=== PATIENT | male | born 1975 | race Caucasian/White ===

== ENCOUNTER 2018-05-08 17:11 | Emergency (ER) | payer BC, MEDICAID, OTHER ==
--- NOTE | 2018-05-08 17:24 | EDM.PDOC ---
ED HPI GENERAL MEDICAL PROBLEM - General Stated Complaint: SOB,CHEST PAIN,SHOULDER PAIN Time Seen by Provider: 05/08/18 17:11 Source of Information: Reports: Patient, EMS History Limitations: Reports: No Limitations - History of Present Illness INITIAL COMMENTS - FREE TEXT/NARRATIVE: 42 y.o.w.m cam to the ed with SSCP, not radiating, extremely anxious. Pt underwent a a divorce recently and is currently under a lot of stress. Pt was for same in the ed in the past. No N/V/D, no excessive sweating, no diaphorsis or any other acute medical issues. BP 116/80 Pulkse 94 RR 18 Pulse ox 100% on RA. Temp 36.8 Onset Date: 05/05/18 Onset Time: 16:00 Duration: Intermittent Location: Reports: Chest Quality: Reports: Ache, Burning, Same as Previous Episode Severity: Moderate Improves with: Reports: None Worsens with: Reports: None Context: Reports: Other (pt is under stress because he went an devorce through recently) Associated Symptoms: Reports: Chest Pain left chest radiating to left shoulder Pain Score (Numeric/FACES): 7 - Related Data Allergies Allergy/AdvReac Type Severity Reaction Status Date / Time No Known Allergies Allergy Verified 05/08/18 18:24 Home Meds: Home Meds NK [No Known Home Meds] 05/08/18 [History] ED ROS GENERAL - Review of Systems Review Of Systems: See Below Constitutional: Reports: No Symptoms HEENT: Reports: No Symptoms Respiratory: Reports: No Symptoms Cardiovascular: Reports: Chest Pain Endocrine: Reports: No Symptoms GI/Abdominal: Reports: No Symptoms : Reports: No Symptoms Musculoskeletal: Reports: No Symptoms Skin: Reports: No Symptoms Neurological: Reports: No Symptoms Psychiatric: Reports: No Symptoms Hematologic/Lymphatic: Reports: No Symptoms Immunologic: Reports: No Symptoms ED EXAM, GENERAL - Physical Exam Exam: See Below Exam Limited By: Other (anxious) General Appearance: Alert, WD/WN, Anxious Eye Exam: Bilateral Eye: Normal Inspection Ears: Normal External Exam Ear Exam: Bilateral Ear: Auricle Normal Nose: Normal Inspection Throat/Mouth: Normal Inspection Head: Atraumatic, Normocephalic Neck: Normal Inspection, Supple, Non-Tender Respiratory/Chest: No Respiratory Distress, Lungs Clear, Normal Breath Sounds, Chest Non-Tender Cardiovascular: Normal Peripheral Pulses, Regular Rate, Rhythm, No Edema, No Gallop Peripheral Pulses: 1+: Brachial (R) GI/Abdominal: Normal Bowel Sounds, Soft, Non-Tender, No Organomegaly, No Abnormal Bruit (Male) Exam: No Hernia Rectal (Males) Exam: Deferred Back Exam: Normal Inspection, Full Range of Motion Extremities: Normal Inspection, Normal Range of Motion, Non-Tender, No Pedal Edema Neurological: Alert, Oriented, CN II-XII Intact, Normal Cognition, Normal Gait Psychiatric: Normal Affect, Anxious Skin Exam: Warm, Dry, Intact, Normal Color, No Rash Lymphatic: No Adenopathy EKG INTERPRETATION EKG Date: 05/08/18 Time: 17:20 Rhythm: NSR Rate (Beats/Min): 70 [place]: Normal P-Wave: Present QRS: Normal ST-T: Normal QT: Normal Comparison: NA - No Prior EKG (poor quality ECG) Course - Vital Signs Text/Narrative:: 42 y.o.w.m cam to the ed with SSCP, not radiating, extremely anxious. Pt underwent a a divorce recently and is currently under a lot of stress. Pt was for same in the ed in the past. No N/V/D, no excessive sweating, no diaphorsis or any other acute medical issues. BP 116/80 Pulkse 94 RR 18 Pulse ox 100% on RA. Temp 36.8 PE; WNWD W M, anxious, CP Imaging: CXR: NAD Labs: WBC, H/H weere no Troponin was 0.017 Na 134 K 3.4 BUN/CR ratio 4.4 BUN 4 Cr 0.9 Impression: Atypical chest pain Tx; ASA Reexam: C/P subsided when pt was assured he has no MT Plan: D/C with instructions Last Recorded V/S: Last Vital Signs Temp 37.1 C 05/08/18 20:05 Pulse 97 05/08/18 20:05 Resp 12 05/08/18 20:05 BP 124/87 05/08/18 20:05 Pulse Ox 100 05/08/18 20:05 - Orders/Labs/Meds Labs: Laboratory Tests 05/08/18 05/08/18 05/08/18 Range/Units 17:43 17:43 17:43 WBC 6.7 (4.5-12.0) X10-3/uL RBC 4.22 L (4.30-5.75) x10(6)uL Hgb 14.4 (11.5-15.5) g/dL Hct 43.3 (30.0-51.3) % MCV 102.7 H (80-96) fL MCH 34.0 H (27.7-33.6) pg MCHC 33.1 (32.2-35.4) g/dL RDW 11.9 (11.5-15.5) % Plt Count 115 L (125-369) X10(3)uL MPV 8.1 (7.4-10.4) fL Neut % (Auto) 67.5 (46-82) % Lymph % (Auto) 22.5 (13-37) % [place] % (Auto) 8.6 (4-12) % Eos % (Auto) 1 (1.0-5.0) % Baso % (Auto) 1 (0-2) % Neut # (Auto) 4.5 (1.6-8.3) # Lymph # (Auto) 1.5 (0.6-5.0) # [place]aufman # (Auto) 0.6 (0.0-1.3) # Eos # (Auto) 0.0 (0.0-0.8) # Baso # (Auto) 0.1 (0.0-0.2) # Sodium 135 (135-145) mmol/L Potassium 3.4 L (3.5-5.3) mmol/L Chloride 98 L (100-110) mmol/L Carbon Dioxide 26 (21-32) mmol/L BUN 4 L (7-18) mg/dL Creatinine 0.9 (0.70-1.30) mg/dL Est Cr Clr Drug Dosing TNP Estimated GFR (MDRD) > 60 (>60) BUN/Creatinine Ratio 4.4 L (9-20) Glucose 90 (80-116) mg/dL Calcium 8.7 (8.6-10.2) mg/dL Troponin I < 0.017 L (<0.017-0.056) ng/mL Meds: Medications Discontinued Medications Generic Name Dose Route Start Last Admin Trade Name Freq PRN Reason Stop Dose Admin Aspirin 324 mg 05/08/18 17:25 07/14/18 17:25 Aspirin PO 05/08/18 17:26 324 mg ONETIME ONE Administration Departure - Departure Time of Disposition: 20:10 Disposition: Home, Self-Care 01 Condition: Good (atypic) Clinical Impression: Atypical chest pain Instructions: Nonspecific Chest Pain, [id number] Referrals: Mark Rodriguez MD [Primary Care Provider] - Forms: ED Department Discharge Additional Instructions: Please f/u with your PMD. Come back if your symptoms get worse acutely
[2018-05-08] MEDS ORDERED: Aspirin 81 MG Tab.Chew PO ONE (17:25)
--- NOTE | 2018-05-10 11:42 | CR ---
INDICATION: Chest pain. CHEST: AP upright view of the chest revealed the heart to be normal in size and shape. Mediastinum was unremarkable. Overlying EKG leads are noted. An active infiltrate or effusion was not seen. IMPRESSION: No acute process. I MTDD
== END 2018-05-08 20:05 | disposition home or self-care (01) ==
LOC: FB.ED 17:11
DX: R07.89 Other chest pain (principal)
CPT/HCPCS: 36415; 71045; 80048; 84484; 85025; 93005; 99285; A9270

== ENCOUNTER 2018-06-20 14:52 | Emergency (ER) | payer MEDICAID ==
--- NOTE | 2018-06-20 15:34 | EDM.PDOC ---
ED HPI GENERAL MEDICAL PROBLEM - General Chief Complaint: Gastrointestinal Problem Stated Complaint: RECTAL BLEEDING Time Seen by Provider: 06/20/18 14:57 Source of Information: Reports: Patient History Limitations: Reports: No Limitations - History of Present Illness INITIAL COMMENTS - FREE TEXT/NARRATIVE: 42 years old w m with a history of chronic ETOH abuse, came to the ed because of one episode of bright red blood in his rectum. Pt had another BM a few hours later. He did not see blood in his stool then. Pt drinks 6-8 bottles of beer daily. for his "anxiety". No N/V/D or dizziness. No other acute medical issue. BP 106/84 pulse 84 RR 20 temp 36.8 Pulse 98% Onset Date: 06/20/18 Onset Time: 08:00 Duration: Hour(s):, Improving Location: Reports: Abdomen Quality: Reports: Other Severity: Moderate Improves with: Reports: None Worsens with: Reports: None Context: Reports: Other (had a BM) Associated Symptoms: Reports: No Other Symptoms Rectal pain Pain Score (Numeric/FACES): 2 - Related Data Allergies Allergy/AdvReac Type Severity Reaction Status Date / Time No Known Allergies Allergy Verified 06/20/18 15:03 Home Meds: Home Meds Folic Acid 1 mg PO DAILY #30 tablet 06/20/18 [Rx] Multivitamin [Daily Multiple Vitamin] 1 each PO DAILY #30 tablet 06/20/18 [Rx] Thiamine [Vitamin B-1] 100 mg PO BEDTIME #30 tab 06/20/18 [Rx] hydrOXYzine pamoate [Hydroxyzine Pamoate] 25 mg QID PRN 06/20/18 [History] Past Medical History - Past Health History Medical/Surgical History: Denies Medical/Surgical History Other Musculoskeletal History: ACL tear Neurological History: Reports: Concussion Psychiatric History: Reports: Anxiety, Panic Attack - Past Surgical History HEENT Surgical History: Reports: Oral Surgery Musculoskeletal Surgical History: Reports: Arthroscopic Procedure Other Musculoskeletal Surgeries/Procedures:: R ACL repair Social & Family History - Family History Family Medical History: Unobtainable - Tobacco Use Years of Tobacco use: 17 Packs/Tins Daily: 0.2 - Caffeine Use Caffeine Use: Reports: Soda - Alcohol Use Days Per Week of Alcohol Use: 7 Number of Drinks Per Day: 5 Total Drinks Per Week: 35 - Recreational Drug Use Recreational Drug Use: No ED ROS GENERAL - Review of Systems Review Of Systems: See Below Constitutional: Reports: No Symptoms HEENT: Reports: No Symptoms Respiratory: Reports: No Symptoms Cardiovascular: Reports: No Symptoms Endocrine: Reports: No Symptoms GI/Abdominal: Reports: Other (blood ins stool one time) : Reports: No Symptoms Musculoskeletal: Reports: No Symptoms Skin: Reports: No Symptoms Neurological: Reports: No Symptoms Psychiatric: Reports: No Symptoms Hematologic/Lymphatic: Reports: No Symptoms Immunologic: Reports: No Symptoms ED EXAM, GI/ABD - Physical Exam Exam: See Below Exam Limited By: No Limitations General Appearance: Alert, WD/WN, Thin Eyes: Bilateral: Normal Appearance Ears: Normal External Exam Nose: Normal Inspection Throat/Mouth: Normal Inspection, Normal Lips, Normal Gums, Normal Voice, No Airway Compromise Head: Atraumatic, Normocephalic Neck: Normal Inspection, Supple, Non-Tender, Full Range of Motion Respiratory/Chest: No Respiratory Distress, Lungs Clear, Normal Breath Sounds, No Accessory Muscle Use, Chest Non-Tender Cardiovascular: Normal Peripheral Pulses, Regular Rate, Rhythm, No Edema, No Gallop, No JVD, No Murmur, No Rub GI/Abdominal Exam: Normal Bowel Sounds, Soft, Non-Tender, No Organomegaly, No Distention, No Abnormal Bruit, No Mass, Pelvis Stable (Male) Exam: Deferred Rectal (Males) Exam: Deferred Back Exam: Normal Inspection, Full Range of Motion Extremities: Normal Inspection, Normal Range of Motion, Non-Tender, No Pedal Edema, Normal Capillary Refill Neurological: Alert, Oriented, CN II-XII Intact, Normal Cognition, Normal Gait, No Motor/Sensory Deficits Psychiatric: Normal Affect, Normal Mood Skin Exam: Warm, Dry, Intact, Normal Color, No Rash Lymphatic: No Adenopathy Course - Vital Signs Text/Narrative:: 42 years old w m with a history of chronic ETOH abuse, came to the ed because of one episode of bright red blood in his rectum. Pt had another BM a few hours later. He did not see blood in his stool then. Pt drinks 6-8 bottles of beer daily. for his "anxiety". No N/V/D or dizziness. No other acute medical issue. BP 106/84 pulse 84 RR 20 temp 36.8 Pulse 98% PE: Thin 42 y.o.w.m one one episode of bright red blood in his stool Labs; Na 133 K 3.9 GFR > 60 Albumin 2.7 ALT/AST 60/64 BUN 2 Cr. 0.6 Glc 92 CPK 38 Alk Phos 138 Impression: Low BUN, Hematochezia. MCV elevated, elevated liver enzymes, Low albumin Hyponatremia, chronci ETOH abuse Tx: none in the ED, prescription for MVT, Foloc acid and thiamin Reexam: Imroved Plan: D/C with instruction Last Recorded V/S: Last Vital Signs Temp 36.8 C 06/20/18 14:57 Pulse 87 06/20/18 16:52 Resp 17 06/20/18 16:52 BP 112/84 06/20/18 16:52 Pulse Ox 100 06/20/18 16:52 - Orders/Labs/Meds Labs: Laboratory Tests 06/20/18 06/20/18 06/20/18 Range/Units 15:45 15:45 15:45 WBC 5.6 (4.5-12.0) X10-3/uL RBC 4.35 (4.30-5.75) x10(6)uL Hgb 14.9 (11.5-15.5) g/dL Hct 44.0 (30.0-51.3) % MCV 101.1 H (80-96) fL MCH 34.3 H (27.7-33.6) pg MCHC 33.9 (32.2-35.4) g/dL RDW 11.6 (11.5-15.5) % Plt Count 152 (125-369) X10(3)uL MPV 8.2 (7.4-10.4) fL Neut % (Auto) 59.1 (46-82) % Lymph % (Auto) 28.3 (13-37) % [place] % (Auto) 7.8 (4-12) % Eos % (Auto) 2 (1.0-5.0) % Baso % (Auto) 3 H (0-2) % Neut # (Auto) 3.3 (1.6-8.3) # Lymph # (Auto) 1.6 (0.6-5.0) # [place] # (Auto) 0.4 (0.0-1.3) # Eos # (Auto) 0.1 (0.0-0.8) # Baso # (Auto) 0.2 (0.0-0.2) # PT 10.7 (8.7-11.1) INR 1.10 (0.89-1.13) Sodium 133 L (135-145) mmol/L Potassium 3.9 (3.5-5.3) mmol/L Chloride 100 (100-110) mmol/L Carbon Dioxide 26 (21-32) mmol/L BUN 2 L (7-18) mg/dL Creatinine 0.6 L (0.70-1.30) mg/dL Est Cr Clr Drug Dosing 173.25 mL/min Estimated GFR (MDRD) > 60 (>60) BUN/Creatinine Ratio 3.3 L (9-20) Glucose 92 (80-116) mg/dL Calcium 8.7 (8.6-10.2) mg/dL Total Bilirubin (0.1-1.3) mg/dL Direct Bilirubin (0.10-0.20) mg/dL AST (5-25) IU/L ALT (12-36) U/L Alkaline Phosphatase (56-112) IU/L Creatine Kinase (60-160) IU/L Total Protein (6.0-8.0) g/dL Albumin (3.5-5.2) g/dL Amylase (25-115) U/L 06/20/18 Range/Units 15:45 WBC (4.5-12.0) X10-3/uL RBC (4.30-5.75) x10(6)uL Hgb (11.5-15.5) g/dL Hct (30.0-51.3) % MCV (80-96) fL MCH (27.7-33.6) pg MCHC (32.2-35.4) g/dL RDW (11.5-15.5) % Plt Count (125-369) X10(3)uL MPV (7.4-10.4) fL Neut % (Auto) (46-82) % Lymph % (Auto) (13-37) % [place] % (Auto) (4-12) % Eos % (Auto) (1.0-5.0) % Baso % (Auto) (0-2) % Neut # (Auto) (1.6-8.3) # Lymph # (Auto) (0.6-5.0) # Bath # (Auto) (0.0-1.3) # Eos # (Auto) (0.0-0.8) # Baso # (Auto) (0.0-0.2) # PT (8.7-11.1) INR (0.89-1.13) Sodium (135-145) mmol/L Potassium (3.5-5.3) mmol/L Chloride (100-110) mmol/L Carbon Dioxide (21-32) mmol/L BUN (7-18) mg/dL Creatinine (0.70-1.30) mg/dL Est Cr Clr Drug Dosing mL/min Estimated GFR (MDRD) (>60) BUN/Creatinine Ratio (9-20) Glucose (80-116) mg/dL Calcium (8.6-10.2) mg/dL Total Bilirubin 0.6 (0.1-1.3) mg/dL Direct Bilirubin 0.22 H (0.10-0.20) mg/dL AST 64 H (5-25) IU/L ALT 60 H (12-36) U/L Alkaline Phosphatase 123 H (56-112) IU/L Creatine Kinase 38 L (60-160) IU/L Total Protein 7.4 (6.0-8.0) g/dL Albumin 2.7 L (3.5-5.2) g/dL Amylase 31 (25-115) U/L Departure - Departure Time of Disposition: 16:35 Disposition: Home, Self-Care 01 Condition: Good Clinical Impression: Hematochezia, Low blood urea nitrogen (BUN), Elevated MCV - Discharge Information *PRESCRIPTION DRUG MONITORING PROGRAM REVIEWED*: Yes *COPY OF PRESCRIPTION DRUG MONITORING REPORT IN PATIENT TOM: Yes Prescriptions: Folic Acid 1 mg PO DAILY #30 tablet Multivitamin [Daily Multiple Vitamin] 1 each PO DAILY #30 tablet Thiamine [Vitamin B-1] 100 mg PO BEDTIME #30 tab Referrals: Mark Rodriguez MD [Primary Care Provider] - Andrés Russell MD [Physician] - Forms: ED Department Discharge Additional Instructions: Please avoid ETOH, increase protein intake, no ETOH please. please f/u with Dr. Russell, come back if your symptoms get worse acutely
== END 2018-06-20 16:52 | disposition home or self-care (01) ==
LOC: FB.ED 14:52
DX: K92.1 Melena (principal); E87.1 Hypo-osmolality and hyponatremia; F10.10 Alcohol abuse, uncomplicated; R71.8 Other abnormality of red blood cells; R79.89 Other specified abnormal findings of blood chemistry; R74.8 Abnormal levels of other serum enzymes; R77.0 Abnormality of albumin; Z79.899 Other long term (current) drug therapy
CPT/HCPCS: 36415; 80048; 80076; 82150; 82550; 85025; 85610; 99283

== ENCOUNTER 2018-07-15 06:53 | Day surgery (SDC) | payer MEDICAID ==
[2018-07-15] MEDS ORDERED: Lactated Ringers 1,000 ML IV SCH (07:30)
[2018-07-15] MEDS ORDERED: Sodium Chloride 0.9% 10 ML Syringe FLUSH PRN (07:30)
[2018-07-15] MEDS ORDERED: Propofol 200 MG/20 ML SDV IV ONE (08:30)
[2018-07-15] MEDS ORDERED: Lidocaine 1% with EPINEPHrine 1:100,000 20 ML MDV INJECT ONE (08:55)
--- NOTE | 2018-07-15 09:15 | PCM.OPNOTE ---
- General Post-Op/Procedure Note Date of Surgery/Procedure: 07/15/18 Operative Procedure(s): c scope wth bx. i+d of thrombosed hemorrhoid Findings: transverse colon polyp thrombosed hemorrhoid Pre Op Diagnosis: hematochezia Post-Op Diagnosis: transverse colon polyp. thrombosed hemorrhoid Anesthesia Technique: Local (3 ml 1 % lido with epi/0.5% buvipicaine), MAC Primary Surgeon: Andrés Russell Anesthesia Provider: Niesha Martinez Pathology: polyp Complications: None Condition: Good Free Text/Narrative:: see dictation
--- NOTE | 2018-07-15 11:17 | OR ---
DATE OF OPERATION: 07/15/2018 SURGEON: Andrés Russell MD PROCEDURES PERFORMED: 1. Colonoscopy with cold forceps biopsy. 2. I and D of thrombosed external hemorrhoid. PREOPERATIVE DIAGNOSIS: Hematochezia. POSTOPERATIVE DIAGNOSES: Transverse colon polyp and thrombosed hemorrhoid. INDICATIONS FOR PROCEDURE: This is a 42-year-old white male who is referred with a history of intermittent bright red blood per rectum. He was offered and accepted colonoscopy. DESCRIPTION OF PROCEDURE: After an excellent IV sedation was administered, digital rectal exam was performed. No marked abnormality was noted. Flexible colonoscope was inserted and advanced to the cecum without difficulty. The prep was excellent. The following findings were noted. Ascending colon, unremarkable. Transverse colon, a small polypoid lesion, biopsied with cold biopsy forceps and sent for permanent. Descending colon, unremarkable. Sigmoid and rectum, unremarkable. With the identified thrombosis, we elected to perform an I and D. The area was prepped with Betadine. 3 mL of a 1:1 mixture of 1% lidocaine with epinephrine and 0.5% bupivacaine was used to infiltrate the area. The necrotic area was incised, and the thrombosis was removed with a hemostat. Dressing was applied. The patient tolerated the procedure well and was taken to Recovery in a good condition. /[id number] JUAN/PHONG
== END 2018-07-15 10:13 | disposition home or self-care (01) ==
LOC: FB.SDS 06:53
PROVIDERS: ATTEND Surgery
DX: K92.1 Melena (principal); K64.5 Perianal venous thrombosis; D12.3 Benign neoplasm of transverse colon; F17.220 Nicotine dependence, chewing tobacco, uncomplicated; F41.9 Anxiety disorder, unspecified; F32.9 Major depressive disorder, single episode, unspecified
CPT/HCPCS: 88305; J2704; J7120